=== PATIENT | female | born 1995 | race Caucasian/White ===

== ENCOUNTER 2017-02-03 10:56 | Emergency (ER) | payer OTHER ==
[2017-02-03 11:07] VITALS: BP 112/55; PULSE 116; TEMP 98.6; BMI 28.3
--- NOTE | 2017-02-03 11:13 | PDOC ---
History of Present Illness - General Chief Complaint: Cold Symptoms Stated Complaint: SORE THROAT, HEADACHE Time Seen by Provider: 02/03/17 11:12 History Source: Patient Exam Limitations: No Limitations - History of Present Illness Initial Comments: CHIEF COMPLAINT: 21 y/o afebrile tachycardic female c/o sore throat, body aches and chills since this morning. HISTORY OF PRESENT ILLNESS: The patient took dayquil when she woke up with little relief. She denies measured fever, cough, runny nose, n/v/d, CP, SOB, abd pain, back pain. Vital signs on arrival are notable for HR of 116 bpm. REVIEW OF SYSTEMS: GENERAL/CONSTITUTIONAL: Subjective chills. No fever. No weakness. No weight change. HEAD, EYES, EARS, NOSE AND THROAT: No change in vision. No ear pain or discharge. +sore throat. CARDIOVASCULAR: No chest pain or shortness of breath. RESPIRATORY: No cough, wheezing, or hemoptysis. GASTROINTESTINAL: No abd pain, nausea, vomiting, diarrhea. GENITOURINARY: No dysuria, frequency, or change in urination. MUSCULOSKELETAL: No joint or muscle swelling or pain. No neck or back pain. SKIN: No rash or easy bruising. NEUROLOGIC: No headache, vertigo, loss of consciousness, or loss of sensation. . PHYSICAL EXAM: GENERAL: The patient is awake, alert, and fully oriented, in no acute distress. She appears uncomfortable. HEAD: Normal with no signs of trauma. ENT: Pupils equal, round and reactive to light, extraocular movements intact, sclera anicteric, conjunctiva clear. Tender anterior cervical lymphadenopathy. 2+ erythematous tonsils without exudate. Uvula midline. No soft/hard palate deformities. No foul breath. LUNGS: Clear to auscultation bilaterally. Normal excursion. No respiratory distress or use of accessory muscles. CV: Rapid rate, regular rhythm, S1/S2, no MRG. Cap refill < 2 sec. ABDOMEN: Soft, non-distended, non-tender even to deep palpation, no hepatomegaly or splenomegaly, no masses. EXTREMITIES: Normal range of motion, no edema. NEUROLOGICAL: Normal speech, normal gait. CN II-XII grossly intact. PSYCH: Normal mood, normal affect. SKIN: Warm, dry, normal turgor, no rashes or lesions noted. Past History - Past Medical History Allergies/Adverse Reactions: Allergies Allergy/AdvReac Type Severity Reaction Status Date / Time No Known Allergies Allergy Verified 02/03/17 11:04 Home Medications: Ambulatory Orders NK [No Known Home Medication] 02/03/17 Other medical history: none - Psycho/Social/Smoking Cessation Hx Anxiety: No Suicidal Ideation: No Smoking Status: No Smoking History: Never smoked Number of Cigarettes Smoked Daily: 0 Information on smoking cessation initiated: No Hx Alcohol Use: No Drug/Substance Use Hx: No Substance Use Type: None *Physical Exam - Vital Signs Last Vital Signs Temp Pulse Resp BP Pulse Ox 98.6 F 116 H 18 112/55 97 02/03/17 11:04 02/03/17 11:04 02/03/17 11:04 02/03/17 11:04 02/03/17 11:04 Medical Decision Making - Medical Decision Making A/P: 21 y/o female with strep vs viral pharyngitis. Plan is as follows: 1. rapid strep 2. hcg hcg - negative rapid strep - positive The patient wants bicillin. Will give IM bicillin, PO motrin and decadron Suggested the patient continue taking 600mg of motrin every 6 hours for fever/ pain, gargle with warm salt water and drink plenty of fluids. Instructed her to f/u with her doctor next week and return to the ER with any worsening or concerning symptoms. The patient verbalizes understanding of all instructions, has no further questions and is awaiting discharge. *DC/Admit/Observation/Transfer Diagnosis at time of Disposition: Strep pharyngitis - Discharge Dispostion Disposition: HOME Condition at time of disposition: Improved - Referrals Referrals: Octavia Case MD [Primary Care Provider] - - Patient Instructions Printed Discharge Instructions: DI for Strep Throat Additional Instructions: Discharge Instructions: -You were given IM Bicillin for treatment of strep throat; no more antibiotics are necessary -Gargle with warm salt water multiple times per day -Alternate between tylenol and motrin every 3 hours for pain/fever -Drink plenty of fluids and eat soft foods until symptoms improve -Return to the ER with any worsening or concerning symptoms - Post Discharge Activity Work/School Note: Back to Work
[2017-02-03] MEDS ORDERED: DEXAMETHASONE LIQUID 0.5 MG/5 ML 240 ML BULK BOTTLE PO ONE (12:09)
[2017-02-03] MEDS ORDERED: PENICILLIN G BENZATHINE 1,200,000 UNIT/2 ML PFS IM ONE (12:09)
[2017-02-03] MEDS ORDERED: IBUPROFEN 600 MG TABLET (FP) PO ONE ×2 (12:09→12:11)
[2017-02-03] MEDS ORDERED: DEXAMETHASONE SOD PHOSPHATE 10 MG/1 ML VIAL ONE (12:11)
[2017-02-03] MEDS ORDERED: PENICILLIN G BENZATHINE 2,400,000 UNIT/4 ML PFS ONE (12:12)
== END 2017-02-03 12:34 | disposition home or self-care (01) ==
LOC: JERFT 10:56
DX: J02.0 Streptococcal pharyngitis (principal); B95.0 Streptococcus, group A, as the cause of diseases classified elsewhere
CPT/HCPCS: 84703; 87070; 87077; 87430; 96372; 99281-25

== ENCOUNTER 2019-01-08 17:27 | Emergency (ER) | payer OTHER ==
--- NOTE | 2019-01-08 18:03 | PDOC ---
Rapid Medical Evaluation Chief Complaint: Pain, Acute Medical Evaluation: Allergies Allergy/AdvReac Type Severity Reaction Status Date / Time No Known Allergies Allergy Verified 02/03/17 11:04 01/08/19 18:02 I have performed a brief in-person evaluation of this patient. The patient presents with a chief complaint of: low back pain, suprapubic pain and breast tenderness Pertinent physical exam findings: LMP 12/30.. I have ordered the following: UA, UcG The patient will proceed to the ED for further evaluation. 01/08/19 18:03
[2019-01-08 18:05] VITALS: BP 122/63; PULSE 80; TEMP 98.1; BMI 29.8
--- NOTE | 2019-01-08 18:43 | PDOC ---
History of Present Illness - General Chief Complaint: ,Possible Stated Complaint: BACK PAIN/ABD PAIN/NAUSEA Time Seen by Provider: 01/08/19 18:10 History Source: Patient Exam Limitations: Clinical Condition - History of Present Illness Initial Comments: 01/08/19 18:38 Patient with no Past medical history LMP Nov 25 present with complaint of one- week history of aching lower back pain with intermittent cramping suprapubic abdominal pain and breast heaviness with nausea. Patient reported her last menstrual period did not look like normal menstrual. Patient is sexually active and has not been using control. Denies vaginal bleeding Timing/Duration: 1 week Past History - Past Medical History Allergies/Adverse Reactions: Allergies Allergy/AdvReac Type Severity Reaction Status Date / Time No Known Allergies Allergy Verified 01/08/19 18:40 Home Medications: Ambulatory Orders Ciprofloxacin [Cipro (Restricted To Id)] 500 mg PO Q12H 5 Days #10 tablet - Suicide/Smoking/Psychosocial Hx Smoking Status: No Smoking History: Current every day smoker Number of Cigarettes Smoked Daily: 1 Information on smoking cessation initiated: No Hx Alcohol Use: Yes Drug/Substance Use Hx: Yes ([facility]) Substance Use Type: None Review of Systems - Review of Systems Able to Perform ROS?: Yes Is the patient limited Hong Konger proficient: No Constitutional: No: Chills, Fever, Malaise Respiratory: No: Symptoms reported Cardiac (ROS): No: Symptoms Reported ABD/GI: Yes: See HPI, Nausea, Abdominal cramping (cramping suprapubic). No: Abd. Pain w/ defecation, Constipated, Diarrhea, Rectal Bleeding, Vomiting, Indigestion : Yes: Pain (suprapubic discomfort). No: Burning, Dysuria, Discharge, Frequency, Flank Pain, Urgency Musculoskeletal: Yes: See HPI, Back Pain (aching lower back pains) Neurological: No: Numbness, Paresthesia, Tingling All Other Systems: Reviewed and Negative *Physical Exam - Vital Signs Last Vital Signs Temp Pulse Resp BP Pulse Ox 98.1 F 80 18 122/63 100 01/08/19 18:02 01/08/19 18:02 01/08/19 18:02 01/08/19 18:02 01/08/19 18:02 - Physical Exam Comments: 03/07/19 18:43 GENERAL: Well developed, well nourished. Awake and alert. No acute distress. HEENT: Normocephalic, atraumatic. PERRLA, EOMI. No conjunctival pallor. Sclera are non-icteric. Moist mucous membranes. Oropharynx is clear. NECK: Supple. Full ROM. CARDIOVASCULAR: Regular rate and rhythm. No murmurs, rubs, or gallops. Distal pulses are 2+ and symmetric. PULMONARY: No evidence of respiratory distress. Lungs clear to auscultation bilaterally. No wheezing, rales or rhonchi. ABDOMINAL: Soft. Non-tender. Non-distended. No rebound or guarding. No organomegaly. Normoactive bowel sounds. MUSCULOSKELETAL Normal range of motion at all joints. No tenderness to lower back. Negative CVA tenderness bilateral. SKIN: Warm and dry. Normal capillary refill. No rashes. No jaundice. NEUROLOGICAL: Alert, awake, appropriate. Gait is normal without ataxia. PSYCHIATRIC: Cooperative. Good eye contact. Appropriate mood General Appearance: Yes: Nourished, Appropriately Dressed. No: Apparent Distress Moderate Sedation - Procedure Monitoring Vital Signs: Procedure Monitoring Vital Signs Temperature 98.1 F 01/08/19 18:02 Pulse Rate 80 01/08/19 18:02 Respiratory Rate 18 01/08/19 18:02 Blood Pressure 122/63 01/08/19 18:02 O2 Sat by Pulse Oximetry (%) 100 01/08/19 18:02 Medical Decision Making - Medical Decision Making 01/08/19 18:44 Patient with no significant past medical history present with complaint one- week history of intermittent aching lower back pain and cramping suprapubic tenderness with nausea and breast pain. Patient LMP May 25. Patient is sexually active and does not use poor control or condoms. Patient denies vaginal bleeding. Clinical exam unremarkable with no tenderness on exam. Urine hCG or analysis with urine culture sent. Treat based on test result. Will consider abdominal ultrasound 01/08/19 19:44 Urine hCG test negative. Pelvic ultrasound with no acute findings. Symptoms likely ovulatory symptoms. Patient stable for discharge to take Motrin as needed for pain which URI and follow-up. 01/08/19 19:58 UA shows positive leukocytes. Patient be treated on Cipro antibiotics pending urine culture results. *DC/Admit/Observation/Transfer Diagnosis at time of Disposition: Mastalgia, Ovulation pain Lumbago without sciatica Qualifiers: Chronicity: acute Back pain laterality: unspecified Qualified Code(s): M54.5 - Low back pain - Discharge Dispostion Disposition: HOME Condition at time of disposition: Stable Decision to Admit order: No - Prescriptions Prescriptions: Ciprofloxacin [Cipro (Restricted To Id)] 500 mg PO Q12H 5 Days #10 tablet - Referrals Referrals: Radu Case MD [Primary Care Provider] - Jo-Ann Garcia MD [Staff Physician] - - Patient Instructions Printed Discharge Instructions: Mastalgia Additional Instructions: Your test was negative. Your ultrasound did not show any acute findings. The symptoms likely from of ovulatory pains. Take Motrin as needed for pain. Your urine shows bacteria and antibiotics is sent to your pharmacy. Urine culture sent and you will be contacted with results. Follow-up urged your TELEGRAPH OFFICE TELEPHONE CLERK or referred TELEGRAPH OFFICE TELEPHONE CLERK if symptoms persist for more than 3 days. - Post Discharge Activity
[2019-01-08 19:37] LABS: URINE APPEARANCE CLOUDY; URINE BILIRUBIN NEGATIVE (<2.0 mg/dL); URINE COLOR YELLOW; URINE GLUCOSE (UA) NEGATIVE (NEGATIVE); URINE KETONE NEGATIVE (NEGATIVE); URINE LEUK ESTERASE 1+ (NEGATIVE); URINE NITRITE NEGATIVE (NEGATIVE); URINE PROTEIN NEGATIVE (NEGATIVE)
[2019-01-08 19:38] LABS: HCG,QUALITATIVE URINE Negative
[2019-01-08 20:33] LABS: EPI CELLS FEW /HPF (FEW); URINE BACTERIA RARE /hpf (NONE SEEN); URINE MUCUS RARE
== END 2019-01-08 20:09 | disposition home or self-care (01) ==
LOC: JERFT 17:27
DX: N94.0 Mittelschmerz (principal); M54.5 Low back pain; N64.4 Mastodynia; F17.210 Nicotine dependence, cigarettes, uncomplicated
CPT/HCPCS: 36415; 76830-TC; 81003; 81015; 84703; 87491; 87591; 99281-25

== ENCOUNTER 2019-02-11 07:50 | Emergency (ER) | payer OTHER ==
[2019-02-11 08:08] VITALS: BP 114/58; PULSE 84; TEMP 98.3; BMI 28.5
--- NOTE | 2019-02-11 08:47 | PDOC ---
History of Present Illness - General Chief Complaint: Injury Stated Complaint: FALL Time Seen by Provider: 02/11/19 08:09 History Source: Patient Exam Limitations: Clinical Condition - History of Present Illness Initial Comments: 02/11/19 08:41 Patient with no significant past medical history present with complaint of left shoulder and upper arm pain status post slip and fall in the bathroom yesterday hitting left side of the arm and shoulder. Patient reported increased pain with elevation of left arm. Patient reported previous fracture to left arm 15 years ago. Patient denies hitting head or loss of consciousness. Denies any other symptoms Timing/Duration: 24 hours Past History - Past Medical History Allergies/Adverse Reactions: Allergies Allergy/AdvReac Type Severity Reaction Status Date / Time No Known Allergies Allergy Verified 02/11/19 08:30 Home Medications: Ambulatory Orders Methocarbamol [Robaxin -] 500 mg PO BID PRN #14 tablet 02/11/19 Naproxen 500 mg PO BID PRN #20 tablet 02/11/19 COPD: No Diabetes: No Disorders: No - Surgical History Cardiac Surgery: No Cholecystectomy: No - Immunization History Immunization Up to Date: No - Suicide/Smoking/Psychosocial Hx Smoking Status: No Smoking History: Current every day smoker Have you smoked in the past 12 months: Yes Number of Cigarettes Smoked Daily: 1 Information on smoking cessation initiated: No Hx Alcohol Use: No Drug/Substance Use Hx: No Substance Use Type: None Review of Systems - Review of Systems Able to Perform ROS?: Yes Is the patient limited Panamanian proficient: No Constitutional: No: Weakness HEENTM: No: Symptoms Reported Respiratory: No: Symptoms reported Cardiac (ROS): No: Symptoms Reported ABD/GI: No: Symptoms Reported Musculoskeletal: Yes: See HPI, Joint Pain (left shoulder), Muscle Pain (left upper arm). No: Muscle Weakness, Joint Stiffness Neurological: No: Numbness, Paresthesia, Tingling All Other Systems: Reviewed and Negative *Physical Exam - Vital Signs Last Vital Signs Temp Pulse Resp BP Pulse Ox 98.3 F 84 18 114/58 L 100 02/11/19 08:04 02/11/19 08:04 02/11/19 08:04 02/11/19 08:04 02/11/19 08:04 - Physical Exam Comments: 02/11/19 08:43 GENERAL: Well developed, well nourished. Awake and alert in mild acute distress. CARDIOVASCULAR: Regular rate and rhythm. No murmurs, rubs, or gallops. PULMONARY: No evidence of respiratory distress. MUSCULOSKELETAL : Moderate point tenderness over lateral deltoid muscle and AC joint of left shoulder. 5 out of 5 muscle strength to left upper extremity. Free range of motion of left shoulder. No bony deformities SKIN: Warm and dry. Normal capillary refill. No rashes. NEUROLOGICAL: Alert, awake, appropriate. No motor deficits in the lower extremities. Gait is normal without ataxia. PSYCHIATRIC: Cooperative. Good eye contact. Appropriate mood and affect. General Appearance: Yes: Nourished, Appropriately Dressed, Mild Distress ED Treatment Course - RADIOLOGY Radiology Studies Ordered: Category Date Time Status HUMERUS-LEFT [RAD] Stat Radiology 02/11/19 08:40 Ordered SHOULDER-LEFT [RAD] Stat Radiology 02/11/19 08:23 Ordered Medical Decision Making - Medical Decision Making 02/11/19 08:45 Patient presented with complaint of left shoulder pain status post slip and fall on the left shoulder yesterday. Patient with history of left arm fracture over 15 years ago which was uncomplicated. Exam significant for tenderness to lateral deltoid muscle and top of left shoulder. No visible deformity on exam. X-ray of left shoulder and left humerus ordered to rule out acute fracture pathology. Patient be discharged home on NSAIDs and muscle relaxer if negative x -ray 02/11/19 09:12 x-rays of left shoulder and humerus shows no acute pathology or fracture. symptoms likely shoulder spray. Patient stable for discharge on naproxen and robaxin with orthopedics follow-up. Toradol 30mg IM given prior to discharge *DC/Admit/Observation/Transfer Diagnosis at time of Disposition: Sprain of left shoulder Qualifiers: Encounter type: initial encounter Shoulder sprain type: unspecified sprain Qualified Code(s): S43.402A - Unspecified sprain of left shoulder joint, initial encounter - Discharge Dispostion Disposition: HOME Condition at time of disposition: Stable Decision to Admit order: No - Prescriptions Prescriptions: Methocarbamol [Robaxin -] 500 mg PO BID PRN #14 tablet PRN Reason: shoulder pain Naproxen 500 mg PO BID PRN #20 tablet PRN Reason: shoulder pain - Referrals Referrals: Sigifredo Newton DO [Staff Physician] - - Patient Instructions Printed Discharge Instructions: DI for Shoulder Sprain Additional Instructions: Your x-rays show no fracture. Take prescribed medications as needed for shoulder sprain. Apply heat to shoulder as needed for pain. Follow-up with referred orthopedics if no improvement in 5 days - Post Discharge Activity
[2019-02-11] MEDS ORDERED: KETOROLAC TROMETHAMINE 30 MG/1 ML VIAL IM ONE (09:11)
[2019-02-11] MEDS ORDERED: KETOROLAC TROMETHAMINE 30 MG/1 ML VIAL ONE (09:15)
== END 2019-02-11 09:19 | disposition home or self-care (01) ==
LOC: JERFT 07:50
PROC: 3E0233Z Introduction of Anti-inflammatory into Muscle, Percutaneous Approach (ICD-10-PCS; principal; 2019-02-11)
DX: S43.402A Unspecified sprain of left shoulder joint, initial encounter (principal); W01.0XXA Fall on same level from slipping, tripping and stumbling without subsequent striking against object, initial encounter; Y93.89 Activity, other specified; Y92.89 Other specified places as the place of occurrence of the external cause; F17.210 Nicotine dependence, cigarettes, uncomplicated
CPT/HCPCS: 73030-TC-LT-FY; 73060-TC-LT-FY; 84703; 99281-25

== ENCOUNTER 2019-03-16 17:40 | Emergency (ER) | payer OTHER ==
[2019-03-16 17:49] VITALS: BP 111/63; PULSE 85; TEMP 98.1; BMI 28.5
--- NOTE | 2019-03-16 17:49 | PDOC ---
Rapid Medical Evaluation Chief Complaint: Chest Pain Time Seen by Provider: 03/16/19 17:47 Medical Evaluation: Allergies Allergy/AdvReac Type Severity Reaction Status Date / Time No Known Allergies Allergy Verified 03/16/19 17:46 03/16/19 17:47 I have performed a brief in-person evaluation of this patient. The patient presents with a chief complaint of: Intermittent CP today. No other sxs. No tob use or illicit drugs. No RF for DVT/PE. No h/o anxiety. No sig fmhx Pertinent physical exam findings:stable and well homar w/ clear chest/lungs I have ordered the following:ekg The patient will proceed to the ED for further evaluation. Discharge Disposition - Diagnosis Chest pain Qualifiers: Chest pain type: unspecified Qualified Code(s): R07.9 - Chest pain, unspecified - Referrals - Patient Instructions - Post Discharge Activity
[2019-03-16] MEDS ORDERED: IBUPROFEN 600 MG TABLET (FP) PO ONE ×2 (18:17→18:52)
--- NOTE | 2019-03-16 18:31 | PDOC ---
History of Present Illness - General Chief Complaint: Chest Pain Stated Complaint: SHARP PAIN IN CHEST Time Seen by Provider: 03/16/19 17:47 History Source: Patient Exam Limitations: No Limitations - History of Present Illness Initial Comments: 03/16/19 18:18 23 year old female with no significant medical or surgical history present with mid chest pain since this am. Patient reports pain is constant to mid chest with some lightheadedness and nausea. Reports daily use of hookah. States " I smoke it alot". Also reports pain with bending forward and deep inhalation. Denies dizziness or shortness of breath. Timing/Duration: 4-6 hours Severity: mild Modifying Factors: improves with: immobilization Associated Symptoms: reports: chest pain. denies: diaphoresis, fever/chills, headaches, loss of appetite, malaise, nausea/vomiting, shortness of breath Aspirin Received prior to arrival: Yes: no aspirin today Asa Contraindications(Core Measure): No: Allergy Beta Roby Contraindications(Core Measure): Yes: Not Prescribed Beta Roby Given by EMS(Core Measure): No Beta Roby Taken at Home(Core Measure): No Beta Roby Not Indicated at this Time(Core Measure): No Past History - Travel Traveled outside of the country in the last 30 days: No Close contact w/someone who was outside of country & ill: No - Past Medical History Allergies/Adverse Reactions: Allergies Allergy/AdvReac Type Severity Reaction Status Date / Time No Known Allergies Allergy Verified 03/16/19 17:46 Home Medications: Ambulatory Orders Azithromycin [Zithromax 250mg Tablets -] 250 mg PO UTDICT #6 tab 03/16/19 Ibuprofen 600 mg PO TID #20 tablet 03/16/19 COPD: No Diabetes: No Disorders: No - Surgical History Cardiac Surgery: No Cholecystectomy: No - Immunization History Immunization Up to Date: Yes - Suicide/Smoking/Psychosocial Hx Smoking Status: No Smoking History: Never smoked Have you smoked in the past 12 months: Yes Number of Cigarettes Smoked Daily: 1 Hx Alcohol Use: No Drug/Substance Use Hx: No Substance Use Type: None Review of Systems - Review of Systems Able to Perform ROS?: Yes Is the patient limited Japanese proficient: No Constitutional: No: Chills, Fever, Malaise HEENTM: No: Nose Congestion Respiratory: No: Shortness of Breath, Wheezing, Productive cough Cardiac (ROS): No: Lightheadedness, Palpitations ABD/GI: No: Nausea, Poor Appetite, Vomiting, Abdominal cramping *Physical Exam - Vital Signs Last Vital Signs Temp Pulse Resp BP Pulse Ox 98.1 F 85 18 111/63 98 03/16/19 17:47 03/16/19 17:47 03/16/19 17:47 03/16/19 17:47 03/16/19 17:47 - Physical Exam General Appearance: Yes: Nourished, Appropriately Dressed HEENT: positive: TMs Normal, Pharynx Normal Neck: positive: Supple. negative: Lymphadenopathy (R), Lymphadenopathy (L) Respiratory/Chest: positive: Chest Tender, Lungs Clear, Normal Breath Sounds Cardiovascular: positive: Regular Rhythm, Regular Rate Extremity: positive: Normal Capillary Refill Neurologic: positive: Fully Oriented Medical Decision Making - Medical Decision Making 03/16/19 19:49 23 year old female with no significant medical or surgical history present with mid chest pain since this am. musculoskeletal chest pain ekg: nsr chest xray : clear no infiltrate Rx: analgesia troypack referred to pmd *DC/Admit/Observation/Transfer Diagnosis at time of Disposition: Musculoskeletal chest pain - Discharge Dispostion Disposition: HOME Condition at time of disposition: Good Decision to Admit order: No - Prescriptions Prescriptions: Azithromycin [Zithromax 250mg Tablets -] 250 mg PO UTDICT #6 tab Ibuprofen 600 mg PO TID #20 tablet - Referrals Referrals: Octavia Case MD [Primary Care Provider] - - Patient Instructions Printed Discharge Instructions: DI for Musculoskeletal Pain Additional Instructions: Activity as tolerated Please return for worsening chest pain and shortness of breath Take medication as directed. - Post Discharge Activity Forms/Work/School Notes: Back to Work
--- NOTE | 2019-03-17 12:09 | EKG ---
Test Reason : Blood Pressure : / mmHG Vent. Rate : 065 BPM Atrial Rate : 065 BPM P-R Int : 170 ms QRS Dur : 076 ms QT Int : 382 ms P-R-T Axes : 037 051 040 degrees QTc Int : 397 ms NORMAL SINUS RHYTHM NORMAL ECG NO PREVIOUS ECGS AVAILABLE Confirmed by MD Will, Robert ([id number]) on 03/17/2019 12:08:38 PM Referred By: Confirmed By:Robert Solis MD
== END 2019-03-16 20:03 | disposition home or self-care (01) ==
LOC: JERFT 17:40
DX: M79.10 Myalgia, unspecified site (principal)
CPT/HCPCS: 71046-TC-FY; 84703; 93005; 93010; 99281-25

== ENCOUNTER 2019-06-02 18:22 | Emergency (ER) | payer SELFPAY ==
[2019-06-02 18:31] VITALS: TEMP 98.2; BMI 28.7
--- NOTE | 2019-06-02 19:01 | PDOC ---
History of Present Illness - General Chief Complaint: Lightheaded Stated Complaint: NAUSEA/VOMITING Time Seen by Provider: 06/02/19 19:00 History Source: Patient Exam Limitations: No Limitations - History of Present Illness Initial Comments: 06/02/19 19:47 Source: Patient HPI: 23yo woman with no pmh presenting with nausea and lightheadedness for about 1 week. Reports initial symptoms were nausea and vomiting predating her LMP (05/22-05/25) and continuing after her period ended. Additional symptoms include lower back cramping pain consistent with her period cramps (no sensory loss, incontinence, weakness, malignancy Hx), and non-positional lightheadedness that can occur "at any time." Endorses hookah, alcohol, and marijuana use - now with emesis after several drinks or emesis with morteza smell of certain foods. Reports a decrease in her appetite as well. Sexually active, denies contraceptive use. Denies any palpitations, chest pain, cough, or shortness of breath. No dysuria, foul smells, frequency. Normal BMs, denies constipation or diarrhea. No fevers or chills, no recent illnesses, sick contacts, or travel. Denies nausea or lightheadedness at time of exam. NKDA No Meds PMH: denies PSH: denies FHx: mother with DM SHx: alcohol, hookah, marijuana Past History - Travel Traveled outside of the country in the last 30 days: No Close contact w/someone who was outside of country & ill: No - Past Medical History Allergies/Adverse Reactions: Allergies Allergy/AdvReac Type Severity Reaction Status Date / Time No Known Allergies Allergy Verified 06/02/19 18:28 Home Medications: Ambulatory Orders Ondansetron HCl [Zofran] 4 mg SL BID 3 Days #9 tablet 06/02/19 COPD: No Diabetes: No Disorders: No - Surgical History Cardiac Surgery: No Cholecystectomy: No - Immunization History Immunization Up to Date: Yes - Suicide/Smoking/Psychosocial Hx Smoking Status: No Smoking History: Never smoked Have you smoked in the past 12 months: Yes Number of Cigarettes Smoked Daily: 1 Hx Alcohol Use: No Drug/Substance Use Hx: Yes ([facility]) Substance Use Type: None Review of Systems - Review of Systems Able to Perform ROS?: Yes Is the patient limited [place] proficient: No Constitutional: Yes: Loss of Appetite. No: Chills, Diaphoresis, Fever, Night Sweats, Weakness HEENTM: No: Symptoms Reported, Eye Pain, Blurred Vision, Recent change in vision , Nose Congestion Respiratory: No: Symptoms reported, Cough, Shortness of Breath, Wheezing, Productive cough Cardiac (ROS): Yes: Symptoms Reported, See HPI, Lightheadedness. No: Chest Pain , Irregular Heart Rate, Palpitations, Syncope, Chest Tightness ABD/GI: Yes: See HPI, Poor Appetite, Vomiting, Abdominal cramping. No: Symptoms Reported, Abdominal Distended, Constipated, Diarrhea, Nausea, Poor Fluid Intake : No: Symptoms Reported, Burning, Dysuria, Discharge, Frequency Integumentary: No: Symptoms Reported, Bruising, Change in Color Neurological: No: Symptoms reported, Headache, Numbness, Paresthesia, Tingling, Weakness Psychiatric: No: Anxiety, Depression All Other Systems: Reviewed and Negative *Physical Exam - Vital Signs Last Vital Signs Temp Pulse Resp BP Pulse Ox 98.2 F 77 18 117/79 99 06/02/19 18:29 06/02/19 18:29 06/02/19 18:29 06/02/19 18:29 06/02/19 18:29 - Physical Exam Comments: 06/02/19 20:01 Vitals reviewed, AFVSS HEENT: normal morphologies, EOMI, symmetrical, MMM, no rhinorrhea Gen: WDWN woman, sitting in bed, on her phone, comfortable, cooperative CV: RRR, nl s1/s2, no murmurs appreciated Pulm: CTABL, normal WOB, symmetric expansion, no wheezes / rales / rhonchi Abd: soft, nontender throughout, nondistended Back: no scars or markings, no midline tenderness, no paraspinal tenderness, no CVA tenderness Ext: warm and well perfused, no edema Pulses: 2+ radial and PT Neuro: alert and oriented, MAEE, normal sensation, normal gait, CN grossly intact ED Treatment Course - LABORATORY CBC & Chemistry Diagram: 06/02/19 20:00 06/02/19 20:00 Medical Decision Making - Medical Decision Making 06/02/19 20:07 23yo woman with no pmh with subacute pre-syncope. R/o cardiogenic causes, PERCs out for PE, most likely anemia from LMP, also concerning for possible . Reassuring for no focal neurologic deficits, intermittent symptoms including none on presentation. Hx inconsistent with BPPV. Pt most interested in status. -EKG -CBC, CMP -UA, UCx, UPreg -1L 0.9% NS -Isopropyl alcohol if nausea develops 06/02/19 21:38 -Pt reassessed, feels much better -Labs within normal limits - test negative -Dispo: home with followup -Return precautions discussed with patient, verbalized understanding *DC/Admit/Observation/Transfer Diagnosis at time of Disposition: Nausea & vomiting Qualifiers: Vomiting type: unspecified Vomiting Intractability: non-intractable Qualified Code(s): R11.2 - Nausea with vomiting, unspecified - Discharge Dispostion Disposition: HOME Condition at time of disposition: Improved Decision to Admit order: No - Prescriptions Prescriptions: Ondansetron HCl [Zofran] 4 mg SL BID 3 Days #9 tablet - Referrals Referrals: [facility] [place] [Provider Group] Chad Steel MD [Staff Physician] - - Patient Instructions Printed Discharge Instructions: DI for Nausea -- Adult Additional Instructions: You were seen in the ED for nausea and vomiting. Your labs were within normal limits. You should arrange followup with your primary care provided in the next week - if you do not have a provider, please call the provided clinic. Please return to the emergency room for new or worsening symptoms. Any loss of consciousness or inability to tolerate food by mouth are some reasons to return. You were given a GI doctor to follow up with. Please call this physician tomorrow to schedule an appointment. Zofran was sent to your pharmacy, take this as directed, up to 2 times a day as needed for nausea or vomiting. - Post Discharge Activity
[2019-06-02] MEDS ORDERED: SODIUM CHLORIDE 1,000 ML IV STA (19:51)
[2019-06-02 20:16] LABS: URINE APPEARANCE TURBID; URINE BILIRUBIN NEGATIVE (NEGATIVE); URINE COLOR YELLOW; URINE GLUCOSE (UA) NEGATIVE (NEGATIVE); URINE KETONE NEGATIVE (NEGATIVE); URINE LEUK ESTERASE NEGATIVE (NEGATIVE); URINE NITRITE NEGATIVE (NEGATIVE); URINE PROTEIN NEGATIVE (NEGATIVE)
[2019-06-02 20:26] LABS: BASO % 0.4 % (0-2.0); EOS % 10.4 % (0-4.5); HEMATOCRIT 44.1 % (32.4-45.2); HEMOGLOBIN 15.1 GM/dL (10.7-15.3); LYMPH % 26.3 % (8-40); MCH 32.2 pg (25.7-33.7); MCHC 34.3 g/dl (32.0-36.0); MEAN PLT VOLUME 10.4 fl (7.5-11.1); MONO % 6.3 % (3.8-10.2); NEUT % 56.6 % (42.8-82.8); PLATELET COUNT 221 K/MM3 (134-434); RDW 13.1 % (11.6-15.6)
[2019-06-02 20:52] VITALS: BP 110/62
[2019-06-02 20:54] VITALS: PULSE 89
[2019-06-02 21:09] LABS: ALBUMIN 4.4 g/dl (3.4-5.0); BILIRUBIN,TOTAL 0.8 mg/dL (0.2-1); BLOOD UREA NITROGEN 9.5 mg/dL (7-18); CALCIUM 9.3 mg/dL (8.5-10.1); CREATININE 0.7 mg/dL (0.55-1.3); POTASSIUM 3.7 mmol/L (3.5-5.1); TOT PROT 7.9 g/dl (6.4-8.2)
--- NOTE | 2019-06-02 21:30 | PDOC ---
Documentation entered by Anamaria Martin SCRIBE, acting as scribe for Rylee Mendoza DO. Rylee Mendoza DO: This documentation has been prepared by the Veronica castro Adrianna, SCRIBE, under my direction and personally reviewed by me in its entirety. I confirm that the documentation accurately reflects all work, treatment, procedures, and medical decision making performed by me. Attending Attestation - Resident Resident Name: Reuben Regalado - ED Attending Attestation I have performed the following: I have examined & evaluated the patient, The case was reviewed & discussed with the resident, I agree w/resident's findings & plan - HPI HPI: The patient is a 23 year old female, with no significant PMH, who presents to the ED for evaluation of nausea, vomit, and lightheadedness for 1 week. Patient reports feeling nauseous and lightheaded with NBNB vomit prior to her menstrual cycle (which ended 8 days ago). Patient notes her symptoms persisted following the completion of her menstrual cycle. She endorses associated low abdominal/ low back cramping (secondary to menstrual cycle) and decreased PO intake ( secondary to nausea and vomit). Patient reports being sexually active, but denies use of contraceptives. Allergies: NKA, NKDA Surgical History: None reported Social History: Marijuana use, hookah use, EtOH use - Physicial Exam PE: GENERAL: Awake, in no acute distress HEAD: No signs of trauma EYES: ENT:clear without exudates. Moist mucosa NECK: Normal ROM, LUNGS:. Normal work of breathing. HEART: Regular rate and rhythm, ABDOMEN: Soft, nondistended CHEST WALL: BACK: No midline tenderness. EXTREMITIES:. No erythema, or tenderness NEUROLOGICAL: Alert, SKIN: Warm, Dry - Medical Decision Making 06/02/19 21:29 23-year-old otherwise healthy female with an episode of low back pain and some mild stomach upset Labs were unremarkable including a negative urinalysis and test On reevaluation at 9:20 PM patient is now asymptomatic and ready to go home She will be discharged with outpatient follow up
--- NOTE | 2019-06-03 08:26 | EKG ---
Test Reason : Blood Pressure : / mmHG Vent. Rate : 077 BPM Atrial Rate : 077 BPM P-R Int : 188 ms QRS Dur : 074 ms QT Int : 388 ms P-R-T Axes : 033 027 020 degrees QTc Int : 439 ms NORMAL SINUS RHYTHM NORMAL ECG WHEN COMPARED WITH ECG OF 16-MAR-2019 17:50, NO SIGNIFICANT CHANGE WAS FOUND Confirmed by TAMMIE WALKER MD ([id number]) on 06/03/2019 8:26:35 AM Referred By: Confirmed By:TAMMIE WALKER MD
== END 2019-06-02 22:10 | disposition home or self-care (01) ==
LOC: JER 18:39
PROC: 3E0337Z Introduction of Electrolytic and Water Balance Substance into Peripheral Vein, Percutaneous Approach (ICD-10-PCS; principal; 2019-06-02)
DX: R11.2 Nausea with vomiting, unspecified (principal)
CPT/HCPCS: 36415; 80053; 81003; 84703; 85025; 87086; 93005; 93010; 99283-25; J7030

== ENCOUNTER 2023-08-24 13:33 | Emergency (ER) | payer OTHER ==
[2023-08-24 13:51] VITALS: RESP 18; BMI 28.9
[2023-08-24] MEDS ORDERED: ACETAMINOPHEN 500 MG TABLET (FP) ONE ×2 (14:51→15:46)
[2023-08-24] MEDS ORDERED: KETOROLAC TROMETHAMINE 30 MG/1 ML VIAL IM ONE (15:40)
[2023-08-24] MEDS ORDERED: ACETAMINOPHEN 500 MG TABLET (FP) PO ONE (15:44)
[2023-08-24 15:48] LABS: EPI CELLS 12 /uL (0-25.1); HYALINE CASTS 0 /uL (0-3.1); URINE APPEARANCE CLEAR; URINE BACTERIA 193 /uL (0-1359); URINE BILIRUBIN NEGATIVE (NEGATIVE); URINE COLOR YELLOW; URINE GLUCOSE (UA) NEGATIVE (NEGATIVE); URINE KETONE NEGATIVE (NEGATIVE); URINE LEUK ESTERASE NEGATIVE (NEGATIVE); URINE NITRITE NEGATIVE (NEGATIVE); URINE PROTEIN NEGATIVE (NEGATIVE); URINE RBC 34 /uL (0-23.9); URINE WBC 2 /uL (0-25.8)
[2023-08-24 15:50] LABS: HCG,QUALITATIVE URINE Negative
[2023-08-24] MEDS ORDERED: KETOROLAC TROMETHAMINE 30 MG/1 ML VIAL ONE (16:04)
[2023-08-24 16:59] VITALS: BP 113/74; PULSE 104; TEMP 99.3
== END 2023-08-24 16:59 | disposition home or self-care (01) ==
LOC: JERFT 13:33
PROC: 3E0233Z Introduction of Anti-inflammatory into Muscle, Percutaneous Approach (ICD-10-PCS; principal; 2023-08-24)
DX: R51.9 Headache, unspecified (principal); R11.0 Nausea; R10.9 Unspecified abdominal pain; R50.9 Fever, unspecified; J02.9 Acute pharyngitis, unspecified; R09.89 Other specified symptoms and signs involving the circulatory and respiratory systems; J98.8 Other specified respiratory disorders; Z20.822 Contact with and (suspected) exposure to COVID-19
CPT/HCPCS: 0241U-QW; 81003; 84703; 87086; 96372; 99284-25

== ENCOUNTER 2024-02-10 06:00 | Day surgery (SDC) | payer OTHER ==
[2024-02-10] MEDS ORDERED: IBUPROFEN 400 MG TABLET (FP) PO PRN (09:00)
[2024-02-10] MEDS ORDERED: ONDANSETRON 4 MG/2 ML VIAL IVPUSH PRN (09:00)
[2024-02-10] MEDS ORDERED: ACETAMINOPHEN 325 MG TABLET (FP) PO PRN (09:00)
[2024-02-10 09:19] VITALS: BMI 31.1
[2024-02-10] MEDS: ELECTROLYTE-148 SOLN 1,000 ML IV SCH (22:57)
[2024-02-11] MEDS ORDERED: FENTANYL CITRATE/PF 50 MCG/ML VIAL ONE ×2 (07:22→07:57)
[2024-02-11] MEDS ORDERED: SUCCINYLCHOLINE CHLORIDE 200 MG/10 ML SYRINGE ONE (07:22)
[2024-02-11] MEDS ORDERED: PROPOFOL 20 ML ONE ×2 (07:22→07:45)
[2024-02-11] MEDS ORDERED: MIDAZOLAM HCL 2 MG/2 ML SINGLE DOSE VIAL ONE (07:23)
[2024-02-11] MEDS: DOXYCYCLINE HYCLATE 100 MG VIAL IVPB ONE (07:50)
[2024-02-11] MEDS ORDERED: ceFAZolin SODIUM 1 GM VIAL ONE (07:57)
[2024-02-11] MEDS ORDERED: KETOROLAC TROMETHAMINE 30 MG/1 ML VIAL ONE (07:57)
[2024-02-11] MEDS ORDERED: ONDANSETRON 4 MG/2 ML VIAL ONE (07:57)
[2024-02-11] MEDS ORDERED: DEXAMETHASONE SOD PHOSPHATE 4 MG/1 ML VIAL ONE (07:57)
[2024-02-11] MEDS ORDERED: LACTATED RINGERS SOLUTION 1,000 ML IV SCH (08:30)
[2024-02-11] MEDS: ACETAMINOPHEN 1000 MG/100 ML BAG IVPB ONE (08:53)
[2024-02-11] MEDS: ACETAMINOPHEN INJECTION 100 ML IVPB ONE (08:53)
[2024-02-11 08:58] VITALS: RESP 18
[2024-02-11] MEDS: DOXYCYCLINE INJECTION 100 MG in DEXTROSE 5%-WATER 100 ML IVPB ONE (09:24)
[2024-02-11 09:30] VITALS: BP 99/75; PULSE 81; TEMP 97.6
== END 2024-02-11 11:06 | disposition home or self-care (01) ==
LOC: JASU-SURG 06:00 → J3W 21:50 → JASU-SURG 02-11 11:06
PROVIDERS: ATTEND Obstetrics & Gynecology
PROC: 10D17ZZ Extraction of Products of Conception, Retained, Via Natural or Artificial Opening (ICD-10-PCS; principal; 2024-02-10)
DX: O02.1 Missed abortion (principal)
CPT/HCPCS: 86850; 86900; 86901; 88305-TC; 94760; J0131

== ENCOUNTER 2024-12-17 20:20 | Emergency (ER) | payer OTHER ==
[2024-12-17 20:26] VITALS: BP 114/67; PULSE 91; RESP 20; TEMP 98; BMI 33.0
[2024-12-17] MEDS: ACETAMINOPHEN 500 MG TABLET (FP) PO ONE (21:04)
[2024-12-17] MEDS ORDERED: ACETAMINOPHEN 325 MG TABLET (FP) ONE (21:05)
[2024-12-17 21:10] LABS: BASO % 0.5 % (0-2.0); EOS % 3.9 % (0-4.5); HEMATOCRIT 39.4 % (32.4-45.2); HEMOGLOBIN 13.6 GM/dL (10.7-15.3); LYMPH % 29.2 % (8-40); MCH 31.1 pg (25.7-33.7); MCHC 34.5 g/dl (32.0-36.0); MEAN CELL VOLUME 90.2 fl (80-96); MONO % 6.7 % (3.8-10.2); NEUT % 59.7 % (42.8-82.8); PLATELET COUNT 212 10^3/uL (134-434); RBC 4.36 M/mm3 (3.60-5.2); RDW 13.2 % (11.6-15.6); WHITE BLOOD COUNT 7.2 K/mm3 (4.0-10.0)
[2024-12-17 21:13] LABS: HCG,QUALITATIVE URINE Positive
[2024-12-17 21:15] LABS: EPI CELLS 21 /uL (0-25.1); HYALINE CASTS 0 /uL (0-3.1); PH,URINE 5.5 (5.0-8.0); URINE APPEARANCE CLEAR; URINE BACTERIA 83 /uL (0-1359); URINE BILIRUBIN NEGATIVE (NEGATIVE); URINE COLOR YELLOW; URINE GLUCOSE (UA) NEGATIVE (NEGATIVE); URINE KETONE TRACE (NEGATIVE); URINE LEUK ESTERASE TRACE (NEGATIVE); URINE NITRITE NEGATIVE (NEGATIVE); URINE PROTEIN TRACE (NEGATIVE); URINE RBC 2071 /uL (0-23.9); URINE UROBILINOGEN 0.2 mg/dL (0.2-1.0); URINE WBC 30 /uL (0-25.8)
[2024-12-17 21:31] LABS: POTASSIUM 3.5 mmol/L (3.5-5.1)
[2024-12-17 21:33] LABS: ALBUMIN 4.1 g/dl (3.4-5.0); BLOOD UREA NITROGEN 13.6 mg/dL (7-18); CALCIUM 9.7 mg/dL (8.5-10.1)
[2024-12-17 21:36] LABS: CREATININE 0.7 mg/dL (0.55-1.3)
[2024-12-17 21:38] LABS: BILIRUBIN,TOTAL 0.5 mg/dL (0.2-1); TOT PROT 7.4 g/dl (6.4-8.2)
[2024-12-17 21:41] LABS: INR 1.09 (0.83-1.09)
[2024-12-17 21:43] LABS: ACTIVATED PTT 30.6 SECONDS (25.2-36.5)
[2024-12-17 22:10] LABS: URINE CRYSTALS FEW AMORPHOUS CRYSTA /hpf
== END 2024-12-17 23:23 | disposition home or self-care (01) ==
LOC: JER 20:20
DX: O20.9 Hemorrhage in early pregnancy, unspecified (principal); Z3A.00 Weeks of gestation of pregnancy not specified
CPT/HCPCS: 36415; 76817-TC; 80053; 81003; 84702; 84703; 85025; 85610; 85730; 86850; 86900; 86901; 87077; 87086; 99284-25

== ENCOUNTER 2024-12-19 12:57 | Emergency (ER) | payer OTHER ==
[2024-12-19 13:09] VITALS: BP 107/70; PULSE 95; RESP 18; TEMP 98; BMI 33.0
== END 2024-12-19 14:56 | disposition home or self-care (01) ==
LOC: JERFT 12:57
DX: O03.9 Complete or unspecified spontaneous abortion without complication (principal)
CPT/HCPCS: 36415; 84702; 99283-25